=== PATIENT | male | born 1995 | race African-American/Black ===

== ENCOUNTER 2020-02-29 10:07 | Emergency (ER) | payer OTHER, SELFPAY ==
[2020-02-29 10:09] VITALS: BP 160/72; PULSE 79; RESP 18; TEMP 36.2; O2SAT 100
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
== END 2020-02-29 11:23 | disposition home or self-care (01) ==
PROVIDERS: Emergency Provider Emergency Medicine
DX: M25.552 Pain in left hip (principal); M25.551 Pain in right hip; V43.62XA Car passenger injured in collision with other type car in traffic accident, initial encounter
CPT/HCPCS: 99282